=== PATIENT | female | born 1945 | race African-American/Black ===

== ENCOUNTER 2018-05-27 15:38 | Emergency (ER) | payer MEDICARE ==
[~2018-05-27] VITALS: Ht 170.2 cm; Wt 83.6 kg
[2018-05-27 16:14] LABS: BILIRUBIN,URINE NEGATIVE (NEG); CLARITY,URINE CLEAR; COLOR,URINE YELLOW; NITRITE,URINE NEGATIVE (NEG); PH,URINE 6.5; PROTEIN,URINE NEGATIVE (NEG-TRACE); UROBILINOGEN,URINE 0.2 mg/dL (0.2 mg/dL)
[2018-05-27] MEDS ORDERED: IPRATRPIUM/ALBUTEROL 0.5/2.5MG 3 ML NEBU. NEB ONE (16:15)
[2018-05-27] MEDS ORDERED: predniSONE 10 MG TABLET PO ONE (16:15)
[2018-05-27] MEDS ORDERED: guaiFENesin DM 200MG/20MG 10 ML SYRUP PO PRN (16:15)
[2018-05-27 16:24] LABS: BASO # 0.1 x10^3/uL (0.0-0.2); BASO % 1 % (0-3); EOS % 1 % (0-3); HEMATOCRIT 36.9 % (36.0-47.0); HEMOGLOBIN 12.9 g/dL (12.0-15.5); LYMPH # 1.8 x10^3/uL (1.0-4.8); LYMPH % 28 % (24-48); MEAN CORPUSCULAR HEMOGLOBIN 32 pg (25-35); MEAN CORPUSCULAR HGB CONC 35 g/dL (31-37); MEAN CORPUSCULAR VOLUME 90 fL (79-100); MONO # 0.5 x10^3/uL (0.0-1.1); MONO % 8 % (0-9); NEUT # 4.1 x10^3uL (1.8-7.7); NEUT % 63 % (31-73); PLATELET COUNT 537 x10^3/uL (140-400); RED BLOOD COUNT 4.09 x10^6/uL (3.50-5.40); RED CELL DISTRIBUTION WIDTH 13.1 % (11.5-14.5); WHITE BLOOD COUNT 6.5 x10^3/uL (4.0-11.0)
[2018-05-27 16:37] LABS: CALCIUM 9.5 mg/dL (8.5-10.1); CREATININE 1.1 mg/dL (0.6-1.0); GFR 49.1; POTASSIUM 4.9 mmol/L (3.5-5.1)
[2018-05-27 16:40] LABS: HYALINE CASTS, URINE FEW /HPF; SQUAMOUS EPITHELIAL CELL,UR MOD /LPF
[2018-05-27 16:41] LABS: BACTERIA,URINE 0 /HPF (0-FEW); YEAST,URINE PRESENT /HPF
[2018-05-27 16:43] LABS: ALBUMIN 3.6 g/dL (3.4-5.0); ALBUMIN/GLOBULIN RATIO 0.8 (1.0-1.7); TOTAL BILIRUBIN 0.3 mg/dL (0.2-1.0); TOTAL PROTEIN 8.1 g/dL (6.4-8.2)
[2018-05-27 16:52] LABS: INFLUENZA A PATIENT NEGATIVE (NEGATIVE); INFLUENZA B PATIENT NEGATIVE (NEGATIVE)
--- NOTE | 2018-05-27 16:59 | RAD ---
PA and lateral chest. HISTORY: Cough x2 weeks, chest tightness PA and lateral views were taken of the chest. Heart is normal in size. There is a mild left lower lobe infiltrate. There is no effusion. IMPRESSION: 1. Mild left lung base infiltrate. Electronically signed by: Joey Wolf MD (05/27/2018 4:55 PM) [facility]
[2018-05-27] MEDS ORDERED: IV NORMAL SALINE 1000ML BAG 1,000 ML IV ONE (17:15)
[2018-05-27] MEDS ORDERED: LEVO500T59 PO (17:36)
[2018-05-27] MEDS ORDERED: HYDR5SUS PO (17:36)
[2018-05-27] MEDS ORDERED: PROAIR HFA8.5 GM INH (17:37)
--- NOTE | 2018-05-27 17:38 | PHYS DOC ---
Past Medical History Past Medical History: Hypertension Past Surgical History: Other Additional Past Surgical Histo: ECTOPIC X2 Alcohol Use: Occasionally Drug Use: None Adult General Chief Complaint Chief Complaint: COUGH HPI HPI Patient is a 72 year old female who presents with increasing cough 2 weeks. The patient states that she has been short of breath which is increasing over the past week. She is coughing up green to yellow phlegm. She denies chest pain , diaphoresis or fevers. She does smoke cigarettes. She does not use inhalers and has not had an incident similar to this. She denies any diagnosis of COPD. She states that the cough is now hacking and nothing seems to improve it. Review of Systems Review of Systems Constitutional: Denies fever or chills [] Eyes: Denies change in visual acuity, redness, or eye pain [] HENT: Denies nasal congestion or sore throat [] Respiratory: See history of present illness Cardiovascular: No additional information not addressed in HPI [] GI: Denies abdominal pain, nausea, vomiting, bloody stools or diarrhea [] : Denies dysuria or hematuria [] Musculoskeletal: Denies back pain or joint pain [] Integument: Denies rash or skin lesions [] Neurologic: Denies headache, focal weakness or sensory changes [] Endocrine: Denies polyuria or polydipsia [] All other systems were reviewed and found to be within normal limits, except as documented in this note. Current Medications Current Medications Current Medications Medications (Trade) Dose Ordered Sig/Ryan Start Time Stop Time Status Last Admin Dose Admin Albuterol/ Ipratropium (Duoneb) 3 ml 1X ONCE 05/27/18 16:15 05/27/18 16:24 DC 05/27/18 16:14 3 ML Guaifenesin (Robitussin Dm) 10 ml PRN Q6HRS PRN 05/27/18 16:15 05/27/18 16:41 10 ML Levofloxacin/ Dextrose 100 ml @ 100 mls/hr 1X ONCE 05/27/18 17:15 05/27/18 18:14 05/27/18 17:18 100 MLS/HR Prednisone (Prednisone) 50 mg 1X ONCE 05/27/18 16:15 05/27/18 16:24 DC 05/27/18 16:32 50 MG Sodium Chloride 1,000 ml @ 1,000 mls/hr 1X ONCE 05/27/18 17:15 05/27/18 18:14 05/27/18 17:11 1,000 MLS/HR Allergies Allergies Allergies Coded Allergies Type Severity Reaction Last Updated Verified Sulfa (Sulfonamide Antibiotics) Allergy Intermediate HIVES 05/27/18 Yes codeine Allergy Intermediate HALLUCINATION 05/27/18 Yes Physical Exam Physical Exam Constitutional: Well developed, well nourished, no acute distress, non-toxic appearance. [] HENT: Normocephalic, atraumatic, bilateral external ears normal, oropharynx moist, no oral exudates, nose normal. [] Eyes: PERRLA, EOMI, conjunctiva normal, no discharge. [] Neck: Normal range of motion, no tenderness, supple, no stridor. [] Cardiovascular:Heart rate regular rhythm, no murmur [] Lungs & Thorax: Bilateral breath sounds are coarse to bilateral bases Abdomen: Bowel sounds normal, soft, no tenderness, no masses, no pulsatile masses. [] Skin: Warm, dry, no erythema, no rash. [] Back: No tenderness, no CVA tenderness. [] Extremities: No tenderness, no cyanosis, no clubbing, ROM intact, no edema. [] Neurologic: Alert and oriented X 3, normal motor function, normal sensory function, no focal deficits noted. [] Psychologic: Affect normal, judgement normal, mood normal. [] Current Patient Data Vital Signs Vital Signs Date Time Temp Pulse Resp B/P (MAP) Pulse Ox O2 Delivery O2 Flow Rate FiO2 05/27/18 16:16 100 Room Air 05/27/18 15:40 98.5 89 20 182/103 (129) 98.5 Lab Values Laboratory Tests Test 05/27/18 15:40 05/27/18 16:05 05/27/18 16:24 Urine Collection Type Unknown Urine Color Yellow Urine Clarity Clear Urine pH 6.5 Urine Specific [place] 1.015 Urine Protein Negative mg/dL (NEG-TRACE) Urine Glucose (UA) Negative mg/dL (NEG) Urine Ketones (Stick) Negative mg/dL (NEG) Urine Blood Trace (NEG) Urine Nitrite Negative (NEG) Urine Bilirubin Negative (NEG) Urine Urobilinogen Dipstick 0.2 mg/dL (0.2 mg/dL) Urine Leukocyte Esterase Trace (NEG) Urine RBC 6-10 /HPF (0-2) Urine WBC 1-4 /HPF (0-4) Urine Squamous Epithelial Cells Mod /LPF Urine Bacteria 0 /HPF (0-FEW) Urine Hyaline Casts Few /HPF Urine Yeast Present /HPF White Blood Count 6.5 x10^3/uL (4.0-11.0) Red Blood Count 4.09 x10^6/uL (3.50-5.40) Hemoglobin 12.9 g/dL (12.0-15.5) Hematocrit 36.9 % (36.0-47.0) Mean Corpuscular Volume 90 fL (79-100) Mean Corpuscular Hemoglobin 32 pg (25-35) Mean Corpuscular Hemoglobin Concent 35 g/dL (31-37) Red Cell Distribution Width 13.1 % (11.5-14.5) Platelet Count 537 x10^3/uL (140-400) H Neutrophils (%) (Auto) 63 % (31-73) Lymphocytes (%) (Auto) 28 % (24-48) Monocytes (%) (Auto) 8 % (0-9) Eosinophils (%) (Auto) 1 % (0-3) Basophils (%) (Auto) 1 % (0-3) Neutrophils # (Auto) 4.1 x10^3uL (1.8-7.7) Lymphocytes # (Auto) 1.8 x10^3/uL (1.0-4.8) Monocytes # (Auto) 0.5 x10^3/uL (0.0-1.1) Eosinophils # (Auto) 0.0 x10^3/uL (0.0-0.7) Basophils # (Auto) 0.1 x10^3/uL (0.0-0.2) Sodium Level 134 mmol/L (136-145) L Potassium Level 4.9 mmol/L (3.5-5.1) Chloride Level 97 mmol/L (98-107) L Carbon Dioxide Level 25 mmol/L (21-32) Anion Gap 12 (6-14) Blood Urea Nitrogen 12 mg/dL (7-20) Creatinine 1.1 mg/dL (0.6-1.0) H Estimated GFR (Cockcroft-Gault) 49.1 BUN/Creatinine Ratio 11 (6-20) Glucose Level 95 mg/dL (70-99) Calcium Level 9.5 mg/dL (8.5-10.1) Total Bilirubin 0.3 mg/dL (0.2-1.0) Aspartate Amino Transferase (AST) 27 U/L (15-37) Alanine Aminotransferase (ALT) 15 U/L (14-59) Alkaline Phosphatase 122 U/L (46-116) H Total Protein 8.1 g/dL (6.4-8.2) Albumin 3.6 g/dL (3.4-5.0) Albumin/Globulin Ratio 0.8 (1.0-1.7) L Influenza Type A Antigen Negative (NEGATIVE) Influenza Type B Antigen Negative (NEGATIVE) Laboratory Tests 05/27/18 16:05 Laboratory Tests 05/27/18 16:05 EKG EKG [] Radiology/Procedures Radiology/Procedures []PATIENT: HANSEL JARA LACCOUNT: [id number]#: [id number] : 11/19/1946 LOCATION: ER AGE: 71 SEX: F EXAM STATUS: PRE ER ORD. PHYSICIAN: CARL BELTRAN APRN REASON: cough x 2 weeks PROCEDURE: CHEST PA & LATERAL PA and lateral chest. HISTORY: Cough x2 weeks, chest tightness PA and lateral views were taken of the chest. Heart is normal in size. There is a mild left lower lobe infiltrate. There is no effusion. IMPRESSION: 1. Mild left lung base infiltrate. Electronically signed by: Joey Wolf MD (05/27/2018 4:55 PM) [facility] DICTATED and SIGNED BY: JOEY WOLF MD DATE: 05/27/18 1093 Course & Med Decision Making Course & Med Decision Making Pertinent Labs and Imaging studies reviewed. (See chart for details) []The patient is receiving 500 mg of Levaquin IV in the Emergency Department as well as a liter of normal saline. She received a dose of cough medication, a nebulizer treatment and prednisone which has improved her coughing considerably. She states that she is feeling better. Dragon Disclaimer Dragon Disclaimer This electronic medical record was generated, in whole or in part, using a voice recognition dictation system. Departure Departure Impression: Primary Impression: Pneumonia Disposition: 01 HOME, SELF-CARE Condition: STABLE Referrals: SHANNA DAVIS MD (PCP) Patient Instructions: Pneumonia, Adult Additional Instructions: Take medications as directed. Do not drive or operate heavy machinery while taking the cough syrup. Follow-up with your primary care provider within the week for a recheck or return to the emergency department if worsening. Scripts Albuterol Sulfate (PROAIR HFA INHALER) 8.5 Gm Hfa.aer.ad 1 PUFF INH PRN Q6HRS PRN for SHORTNESS OF BREATH, #1 INHALER 0 Refills Prov: CARL BELTRAN APRN 05/27/18 Hydrocodone/Chlorphen Polis (HYDROCODONE-CHLORPHENIRAM SUSP) 5 Ml Ximena.er.12h 5 ML PO PRN Q12HR PRN for COUGH, #120 ML 0 Refills Prov: CARL BELTRAN APRN 05/27/18 Levofloxacin (LEVAQUIN) 500 Mg Tablet 1 TAB PO DAILY, #7 TAB Prov: CARL BELTRAN APRN 05/27/18 CARL BELTRAN APRN May 27, 2018 17:38
[2018-05-27 18:30] VITALS: BP 145/90
--- NOTE | 2018-05-28 07:00 | EKG ---
[facility] [address] [place] [address] Test Date: 2018-05-27 Test Time: 15:56:30 Pat Name: HANSEL JARA Department: Room: Gender: F Inspector Floor Sub Assembly: : [id number] Requested By: CARL BELTRAN Order Number: [id number] Reading MD: Liam Parker MD Measurements Intervals [place] Rate: 87 P: 52 NH: 162 QRS: -8 QRSD: 74 T: 48 QT: 362 QTc: 441 Interpretive Statements SINUS RHYTHM NON-SPECIFIC ST/T CHANGES Electronically Signed On 05-28-2018 11:47:40 CDT by Liam Parker MD
== END 2018-05-27 18:40 | disposition home or self-care (01) ==
LOC: ER 15:38 → EDBD 15:38 → ER 18:40
DX: J18.9 Pneumonia, unspecified organism (principal); I10 Essential (primary) hypertension; Z88.5 Allergy status to narcotic agent; Z88.2 Allergy status to sulfonamides
CPT/HCPCS: 36415; 71046; 80053; 81001; 85025; 87086; 87804; 93005; 94640; 96365; 99285; J1956; J7030; J7512; J7620